=== PATIENT | female | born 1945 | race Two or more races ===

== ENCOUNTER 2017-10-18 22:47 | Inpatient (IN) | payer OTHER ==
[~2017-10-18] VITALS: Ht 162.6 cm; Wt 94.8 kg
[2017-10-18] MEDS ORDERED: MAG HYDROX/AL HYDROX/SIMETH 30 ML UDC PO PRN (23:00)
[2017-10-18] MEDS ORDERED: MAGNESIUM HYDROXIDE 30 ML UDC PO PRN (23:00)
[2017-10-18] MEDS ORDERED: Z GUARD REMEDY 2 OZ OINT TP PRN (23:00)
[2017-10-18] MEDS ORDERED: ACETAMINOPHEN 325 MG TABLET PO PRN (23:00)
[2017-10-18] MEDS ORDERED: ONDANSETRON HCL/PF 4 MG/2 ML VIAL IVP PRN (23:00)
[2017-10-18] MEDS ORDERED: HYDROCODONE/APAP 5/325MG 1 EACH TABLET PO PRN (23:00)
[2017-10-18 23:30] VITALS: BP_SYST 122; BP_SYST 159; BP_DIAS 57; BP_DIAS 88
--- NOTE | 2017-10-18 23:30 | NUR ---
WEB MANAGER NOTES PATIENT TRANSFERRED FROM [place], BROUGHT INTO THE UNIT VIA [facility], ACCOMPANIED BY 2 PERSONNEL OF [facility]SP[facility]. SAFELY AMBULATED WITH CANE FROM BED TO [facility]. PATIENT NOTED TO BE ALERT AND ORIENTED X 3, ICELANDIC SPEAKING, NOTED WITH NO SOB, BREATHING EVEN AND UNLABORED, IN NO ACUTE DISTRESS. PT VERBALIZED PAIN LEVEL OF 5/10, ASKED IF SHE NEEDS PAIN MEDICATION BUT PER PATIENT SHE IS OKAY. PT WITH EXISTING IV PERIPHERAL LINE ON LAC G20, INTACT AND PATENT. WITH ASSISTANCE OF A MUSHROOM GROWTH MEDIA MIXER, ORIENTED PT TO UNIT, ROOM, CALL LIGHT AND USE OF CALL LIGHT. PATIENT VERBALIZED UNDERSTANDING, IS AWARE OF SAFETY NEEDS, PLACED BED IN LOW POSITION AND LOCKED IN PLACE. CALL LIGHT WITHIN EASY REACH. ALL PATIENT'S NEEDS ATTENDED TO. BELONGINGS CHECKED BUT PATIENT VERBALIZED THAT SHE DOESN'T WANT HER PURSE TO BE CHECKED AND OPENED. EXPLAINED RISKS AND BENEFITS TO PATIENT BUT PATIENT INSISTED THAT "THESE ARE NOT IMPORTANT." RESPECTED PATIENT'S REQUEST. WILL CONTINUE TO MONITOR PT.
[2017-10-18] MEDS ORDERED: ATOR10TA PO (23:49)
[2017-10-18] MEDS ORDERED: NIFE60TA69 PO (23:49)
[2017-10-18] MEDS ORDERED: HYDR25TA4 PO (23:49)
[2017-10-18] MEDS ORDERED: LEVO25TA7 PO (23:49)
[2017-10-18] MEDS ORDERED: LOSA100T15 PO (23:49)
[2017-10-18] MEDS ORDERED: CLON0.1T PO (23:49)
[2017-10-18] MEDS ORDERED: FLUT1DIS27 IH (23:51)
[2017-10-19] VITALS (10 sets, daily range): BP systolic 97–133; BP diastolic 51–82
--- NOTE | 2017-10-19 02:24 | NUR ---
RN NOTES PATIENT'S TROPONIN LEVEL NOTED TO BE = 0.148, RELAYED RESULT TO BEN NICE WITH NO NEW ORDERS. PATIENT COMFORTABLY SLEEPING IN BED, BREATHING EVEN AND UNLABORED, NO SOB AND IN NO ACUTE DISTRESS. WILL CONTINUE TO MONITOR.
[2017-10-19] MEDS ORDERED: MORPHINE SULFATE INJ 2 MG/ML DISP.SYRIN IV PRN (02:30)
[2017-10-19] MEDS ORDERED: IV NS 0.9% 500 ML IV PRN (02:30)
[2017-10-19] MEDS ORDERED: PANTOPRAZOLE 40 MG VIAL IV SCH (03:30)
--- NOTE | 2017-10-19 03:30 | NUR ---
RN NOTE PATIENT SEEN AND EXAMINED BY BEN NICE.
[2017-10-19] MEDS: IV NS 0.9% 1,000 ML IV SCH (03:39)
[2017-10-19 06:31] LABS: APPEARANCE,URINE CLEAR (CLEAR); BILIRUBIN,URINE NEGATIVE (NEGATIVE); BLOOD, URINE NEGATIVE Ery/uL (NEGATIVE); COLOR,URINE YELLOW (YELLOW); KETONES,URINE NEGATIVE (NEGATIVE); LEUKOCYTE ESTERASE ,URINE NEGATIVE (NEGATIVE); NITRITE, URINE NEGATIVE (NEGATIVE); PROTEIN,URINE 3+ mg/dl (NEGATIVE); UGLUCOSE NEGATIVE (NEGATIVE); UROBILINOGEN,URINE 0.2 EU/dL (0.2)
[2017-10-19 07:11] LABS: BACTERIA,URINE Few /HPF (None Seen); RBC,URINE 0-2 /HPF (0-2); SQUAMOUS EPITHELIAL CELL,UR Few /HPF (None Seen)
--- NOTE | 2017-10-19 07:20 | NUR ---
RN CLOSING NOTES PATIENT IN BED, AWAKE, ALERT AND ORIENTED X 4, NO SOB, BREATHING EVEN AND UNLABORED, IN NO ACUTE DISTRESS. NOTED PT'S IV LINE ON LAC TO BE DISLODGED, INSERTED A NEW LINE ON THE RIGHT HAND G22, WITH GOOD BLOOD RETURN, INTACT AND PATENT. ALL PATIENT'S NEEDS ATTENDED TO THROUGHOUT THE SHIFT. DENIES CHEST PAIN AT THIS TIME. CALL LIGHT PLACED WITHIN EASY REACH. ENDORSED TO AM SHIFT NURSE FOR CONTINUITY OF CARE.
[2017-10-19 07:22] LABS: BASOPHILS % (AUTO) 0.5 % (0.0-2.0); EOSINOPHILS % (AUTO) 1.9 % (0.0-6.0); HEMATOCRIT 27 % (33-45); HEMOGLOBIN 9.1 g/dL (11.5-14.8); LYMPHOCYTES # (AUTO) 1.7 /CMM (0.8-4.8); LYMPHOCYTES % (AUTO) 26.5 % (20.0-44.0); MEAN CORPUSCULAR HGB CONC 34 g/dl (31.0-36.0); MEAN CORPUSCULAR VOLUME 87 fL (82-100); MONOCYTES # (AUTO) 0.7 /CMM (0.1-1.30); MONOCYTES % (AUTO) 10.8 % (2.0-12.0); NEUTROPHILS # (AUTO) 3.8 /CMM (1.8-8.9); NEUTROPHILS % (AUTO) 60.3 % (43.0-81.0); PLATELET COUNT (AUTO) 275 /CMM (150-450); RDW COEFFICIENT OF VARIATION 15.2 (11.5-15.0); RED BLOOD CELL COUNT(AUTO) 3.08 MIL/uL (4.0-5.2); WHITE BLOOD COUNT (AUTO) 6.3 K/uL (4.3-11.0)
[2017-10-19 07:39] LABS: B-TYPE NATRIURETIC PEPTIDE 2525 PG/ML (0-125); CALCIUM, SERUM 8.1 mg/dL (8.5-10.1); CARBON DIOXIDE 22 mmol/L (21-32); CHLORIDE 107 mmol/L (98-107); CREATININE 1.7 mg/dL (0.6-1.3); GLUCOSE 99 mg/dL (74-106); MAGNESIUM 2.1 mg/dL (1.8-2.4); PHOSPHORUS 4.2 mg/dL (2.5-4.9); POTASSIUM 4.1 mmol/L (3.5-5.1); SODIUM SERUM 140 mmol/L (136-145); UREA NITROGEN, BLOOD 27 mg/dL (7-18)
[2017-10-19 07:42] LABS: HDL CHOLESTEROL 47 mg/dL (40-60); LDL 93 mg/dL (0-99); TRIGLYCERIDES 77 mg/dL (30-150)
[2017-10-19 07:51] LABS: CHOLESTEROL 153 mg/dL (<200)
--- NOTE | 2017-10-19 07:57 | NUR ---
SOFTWARE QUALITY ANALYST: INITIAL NOTE RECEIVED PT A/OX 4. ON TELE MONITORING SR AT 76 BPM. NO DISTRESS NOTED. NO SOB NOTED. NO PAIN NOTED. BRP. AMBULATORY WITH CANE. NPO EXCEPT MEDS. R HAND 322 RUNNING NS AT 50CC/HR. SITE CLEAR AND PATENT. NO REDNESS OR BLEEDING NOTED. RESTING COMFORTABLY IN BED. CALL LIGHT WITHIN REACH.
[2017-10-19] MEDS: CARVEDILOL 12.5 MG TABLET PO SCH ×2 (08:49→21:53)
[2017-10-19] MEDS: LEVOTHYROXINE SODIUM 25 MCG TABLET PO SCH (08:49)
[2017-10-19] MEDS: ASPIRIN 325 MG TABLET PO SCH (08:49)
[2017-10-19] MEDS: CLONIDINE HCL 0.1 MG TABLET PO SCH ×2 (08:50→16:11)
[2017-10-19] MEDS: ENOXAPARIN SODIUM 100 MG/ML DISP.SYRIN SQ SCH (08:51)
[2017-10-19] MEDS: FLUTICASONE/VILANTEROL 1 EACH BLST.W.DEV IH SCH (08:56)
[2017-10-19] MEDS: NIFEdipine XL 60 MG TAB PO SCH (08:56)
[2017-10-19] MEDS ORDERED: ENOXAPARIN SODIUM 40 MG/0.4 ML DISP.SYRIN SQ SCH (09:00)
[2017-10-19] MEDS ORDERED: FLUTICASONE/SALMETEROL DISKUS IH SCH (09:00)
[2017-10-19] MEDS ORDERED: NIFEdipine XL 60 MG TAB PO SCH (09:00)
[2017-10-19] MEDS ORDERED: LOSARTAN POTASSIUM 50 MG TABLET PO SCH (09:00)
[2017-10-19] MEDS ORDERED: HYDROCHLOROTHIAZIDE 25 MG TABLET PO SCH (09:00)
--- NOTE | 2017-10-19 09:57 | NUR ---
DUE TO NEW ONSET OF UNCONTROLLED A.FIB. MD MCKEON ORDEERS TO TRASNFER TO ANGELITA AND PLACE ORDERS TO START AMNIODARONE BOLUS. ORDERS CARRIED OUT
[2017-10-19] MEDS ORDERED: MORPHINE SULFATE INJ 4 MG/ML DISP.SYRIN IV PRN (10:00)
--- NOTE | 2017-10-19 10:19 | NUR ---
TRASNFERED TO ROOM 117-1. REPORT GIVEN TO TONEY HUMMEL
--- NOTE | 2017-10-19 10:22 | NUR ---
TD RN NOTES RECEIVED PATIENT A/OX4 BRUNEIAN SPEAKING ONLY. PATIENT STATES CHEST PAIN IS BETTER 5/10. AT THIS TIME NO SOB, DIFFICULTY BREATHING. TELE AFIB 130-140'S . PATIENT TRANSFERED HERE PER DR MCKEON ORDER. PHARMACY AWARE OF AMIO ORDER. NEEDS IN REACH, SAFETY PRECAUTIONS IN PLACE. WILL MONITOR
[2017-10-19] MEDS ORDERED: AMIODARONE 900 MG in IV D5W 482 ML IV PRN (10:30)
[2017-10-19] MEDS ORDERED: AMIODARONE 150 MG in IV D5W 100 ML IV ONE (10:30)
--- NOTE | 2017-10-19 10:34 | NUR ---
TD RN NOTES PATIENT PLACED ON 2LNC FOR COMFORT.
--- NOTE | 2017-10-19 11:21 | NUR ---
TD RN NOTES VS STABLE. PATIENT C/O CHEST PAIN 5-6/10 AT REST. PER MD ORDER GIVING 1MG MORPHINE IVP WILL REASSESS.
--- NOTE | 2017-10-19 11:51 | NUR ---
FRANCO RN NOTES MESSAGE LEFT FOR LIP CUTTER TEX IF WE ARE KEEPING PATIENT NPO
--- NOTE | 2017-10-19 14:47 | NUR ---
TD RN NOTES MESSAGE TO DR MCKEON. PATIENT NSR FOR 2.5 HRS.
--- NOTE | 2017-10-19 15:46 | NUR ---
TD RN NOTES PER MD MCKEON CONTINUE AMIODARONE DRIP. PATIENT IS GETTING CTA TOMORROW. NPO MN
--- NOTE | 2017-10-19 16:25 | NUR ---
TD RN NOTES PER DR MCKEON PATIENT CAN HAVE CTA ANY TIME AVAILABLE. CALLED XRAY AND THEY HAVE PATIENT SET UP FOR 10/20/17 AM. WILL BE NPO MN.
--- NOTE | 2017-10-19 17:15 | NUR ---
TD RN NOTES TITRATED AMIO DRIP PER PROTOCOL. PATIENT STABLE. NO COMPLICATIONS NOTED. FAMILY AT BEDSIDE
--- NOTE | 2017-10-19 18:44 | NUR ---
TD RN CLOSING PATIENT CURRENTLY NSR. PATIENT DENIES CHEST PAIN AT THIS TIME. ALL DUE MEDS GIVEN AND ALL NEEDS ASSESSED AND MET. SAFETY PRECAUTIONS IN PLACE. IV SITES CLEAN DRY PATENT AND INTACT. ANIO DRIP RUNNING ORDERED PER PROTOCOL. PATIENT APPEARS STABLE AT THIS TIME. WILL ENDORSE CARE TO RN FOR MARY
--- NOTE | 2017-10-19 20:10 | NUR ---
ANGELITA RN NOTES PATIENT IS IN BED. ALERT, ORIENTED X4.NO LABORED BREATHING, VITALS ARE WNL, IN ROOM AIR , SAFETY MEASURES ARE IMPLEMENTED ,CALL LIGHT IS IN EASY REACH . SHE IS ON AMIODARONE DRIP PER PROTOCOL, IVF ORDERED. IV LINES ARE INTACT, PATENT.
[2017-10-19] MEDS: NITROGLYCERIN 0.4 MG/TAB BOTTLE SL PRN (21:54)
[2017-10-19] MEDS: ATORVASTATIN 10 MG TABLET PO SCH (21:54)
--- NOTE | 2017-10-19 22:00 | NUR ---
ANGELITA RN NOTES PATIENT COMPLAINED OF CHEST PAIN 5/10 NON RADIATING WORSENING WITH BREATHING. PT IS PLACED ON NC 2L AND NITRO PRN IS GIVEN. PT IS REASSESSED . PT VERBALIZES RELIEF FROM PAIN.
[2017-10-20] VITALS (7 sets, daily range): BP systolic 105–139; BP diastolic 51–83
[2017-10-20] MEDS: IV NS 0.9% 1,000 ML IV SCH (01:36)
--- NOTE | 2017-10-20 06:51 | NUR ---
ANGELITA RN NOTES PATIENT IS IN BED. ALERT, ORIENTED X4.NO LABORED BREATHING, VITALS ARE WNL, IN 2L OXYGEN , SAFETY MEASURES ARE IMPLEMENTED ,CALL LIGHT IS IN EASY REACH . SHE IS ON AMIODARONE DRIP PER PROTOCOL, IVF ORDERED. IV LINES ARE INTACT, PATENT.PATIENT DENIES ANY CHEST PAIN AT THIS TIME . ALL DUE MEDS ARE GIVEN AND NEEDS ARE ADDRESSED.WILL ENDORSE CARE TO UPCOMING SHIFT NURSE.
[2017-10-20 07:09] LABS: BASOPHILS % (AUTO) 0.6 % (0.0-2.0); EOSINOPHILS % (AUTO) 3.5 % (0.0-6.0); HEMATOCRIT 27 % (33-45); HEMOGLOBIN 9.2 g/dL (11.5-14.8); LYMPHOCYTES # (AUTO) 1.6 /CMM (0.8-4.8); LYMPHOCYTES % (AUTO) 25.9 % (20.0-44.0); MEAN CORPUSCULAR HGB CONC 34 g/dl (31.0-36.0); MEAN CORPUSCULAR VOLUME 86 fL (82-100); MONOCYTES # (AUTO) 0.6 /CMM (0.1-1.30); MONOCYTES % (AUTO) 10.1 % (2.0-12.0); NEUTROPHILS # (AUTO) 3.7 /CMM (1.8-8.9); NEUTROPHILS % (AUTO) 59.9 % (43.0-81.0); PLATELET COUNT (AUTO) 293 /CMM (150-450); RDW COEFFICIENT OF VARIATION 14.8 (11.5-15.0); RED BLOOD CELL COUNT(AUTO) 3.16 MIL/uL (4.0-5.2); WHITE BLOOD COUNT (AUTO) 6.2 K/uL (4.3-11.0)
[2017-10-20 07:26] LABS: ALANINE AMINOTRANSFERASE 20 U/L (12-78); ALBUMIN 2.4 g/dL (3.4-5.0); ALKALINE PHOSPHATASE 65 U/L (46-116); ASPARTATE AMINOTRANSFERASE 23 U/L (15-37); BILIRUBIN,TOTAL 0.2 mg/dL (0.2-1.0); CALCIUM, SERUM 7.9 mg/dL (8.5-10.1); CARBON DIOXIDE 24 mmol/L (21-32); CHLORIDE 108 mmol/L (98-107); GLUCOSE 103 mg/dL (74-106); MAGNESIUM 2.1 mg/dL (1.8-2.4); PHOSPHORUS 4.5 mg/dL (2.5-4.9); POTASSIUM 4.6 mmol/L (3.5-5.1); SODIUM SERUM 139 mmol/L (136-145); TOTAL PROTEIN, SERUM 6.5 g/dL (6.4-8.2); UREA NITROGEN, BLOOD 29 mg/dL (7-18)
[2017-10-20 07:39] LABS: TROPONIN I 0.198 ng/mL (0.00-0.056)
--- NOTE | 2017-10-20 08:00 | NUR ---
ANGELITA RN NOTES PATIENT IS IN BED. ALERT, ORIENTED X4.SPEAKS UKRAINIAN, NO LABORED BREATHING, VITALS ARE WNL, IN 2L OXYGEN , SAFETY MEASURES ARE IMPLEMENTED ,CALL LIGHT IS IN EASY REACH . SHE IS ON AMIODARONE DRIP PER PROTOCOL, IVF ORDERED. IV ON RT HL FA WITH SWOLLEN NOTED, NEW ONE 0N LT HAND TIM 20 INSERTED WITH GOOD BLOOD RETURN PATIENT DENIES ANY CHEST PAIN AT THIS TIME . AND NEEDS ARE ADDRESSED. ON TELE MONITOR SB 58 ON NPO AT THIS TIME WILL HAVE CT ANGIO GRAM TODAY, BED IN LOWEST AND LOCKED POSITION
--- NOTE | 2017-10-20 08:39 | NUR ---
ANGELITA RN NOTE CALLED RADIOLOGY ABOUT CT ANGIO SPOKE WITH TECH .STATED THAT WILL CALL WHEN ENDOSCOPY TECHNICAN PATENT STILL ON NPO
[2017-10-20] MEDS: ENOXAPARIN SODIUM 100 MG/ML DISP.SYRIN SQ SCH (10:06)
[2017-10-20] MEDS: NIFEdipine XL 60 MG TAB PO SCH (10:07)
[2017-10-20] MEDS: LEVOTHYROXINE SODIUM 25 MCG TABLET PO SCH (10:09)
[2017-10-20] MEDS: ASPIRIN 325 MG TABLET PO SCH (10:09)
[2017-10-20] MEDS: FLUTICASONE/VILANTEROL 1 EACH BLST.W.DEV IH SCH (10:15)
[2017-10-20] MEDS: CARVEDILOL 12.5 MG TABLET PO SCH ×2 (10:16→21:18)
[2017-10-20] MEDS: CLONIDINE HCL 0.1 MG TABLET PO SCH ×2 (10:16→17:03)
--- NOTE | 2017-10-20 11:41 | NUR ---
ANGELITA DARNELL SPOKE WITH DR MCKEON NOTIFY THAT AMIODARONE DRIP COMPLETED STATED THAT WILL CHECK PATIENT SOON AND WILL PLACE ON PO AMIODARONE
--- NOTE | 2017-10-20 12:01 | NUR ---
ANGELITA RN NOTE REPORTED TO DR MCKEON THAT TROPONIN 0.198 STATED CONT LAURI AND IVF
[2017-10-20] MEDS: AMIODARONE HCL 200 MG TABLET PO SCH (12:29)
--- NOTE | 2017-10-20 14:21 | NUR ---
ANGELITA RN NOTE AMBULATE WELL WITH PT USING A WALKER
--- NOTE | 2017-10-20 15:59 | NUR ---
shelia rn note jason Alvarado inserted mid line on lt upper arm [id number], all needs attended
--- NOTE | 2017-10-20 18:52 | NUR ---
ANGELITA RNNNTE UNABLE TO FLUSH MOD LINE ON LT UPPER ARM , TRIED TO DO REPOSITION ON ARM , STILL UNABLE TO FLUSH, CALLED ZEINAB ALVARADO DNP LEFT A MESSAGE AND EDWINA NURSING LEAK DETECTION ENGINEER AWARE
--- NOTE | 2017-10-20 18:56 | NUR ---
DO RN NOTE SPOKE WITH EDWINA RN CENTER MEDICAL SPECIALIST STATED THAT SPOKE WITH ZEINAB ALVARADO DNP AND HE WILL INSERT NEW MID LINE TOMORROW
--- NOTE | 2017-10-20 19:07 | NUR ---
ANGELITA RN NOTE RECEIVED PATIENT IN BED, AWAKE AND ALERT. PATIENT DENIES ANY PAIN AND DISCOMFORT, NOT IN ANY DISTRESS. PATIENT ON 2LPM O2 VIA NC, RESPIRATION IS EVEN AND UNLABORED. NSR ON TELE WITH OCCASIONAL PVCs, HR IN THE 60s. PATIENT'S CTCA HELD FOR TODAY D/T INCREASED CREATININE, IVF CONTINUED ORDERED. WITH L HAND AND L WRIST/THUMB G20, FLUSHING WELL, INTACT AND PATENT, NO SIGNS OF INFILTRATION. JOY MIDLINE IN PLACE, UNABLE TO FLUSH CHECKED. PATIENT UPDATED WITH PLAN OF CARE. REASSURED NEEDED. PATIENT'S NEEDS ANTICIPATED AND MET, CALL LIGHT IN REACH. WILL MONITOR CLOSELY.
[2017-10-20] MEDS: ATORVASTATIN 10 MG TABLET PO SCH (21:18)
[2017-10-20] MEDS: IV NS 0.9% 1,000 ML IV PRN (21:18)
[2017-10-20] MEDS: NITROGLYCERIN 0.4 MG/TAB BOTTLE SL PRN (21:19)
--- NOTE | 2017-10-20 21:19 | NUR ---
ANGELITA RN NOTE PATIENT COMPLAINING OF MILD CHEST PAIN, 5/10, AGGRAVATED WITH ACTIVITY AND BREATHING. PATIENT'S VS 134/82, 74, 98% ON 2LPM OF O2 VIA NC. PATIENT REQUESTING FOR NITRO SL, GIVEN ORDERED. NIGHT TIME MEDS GIVEN. WILL MONITOR FOR EFFECTIVENESS.
[2017-10-21] VITALS: BP 137/75
[2017-10-21 04:00] VITALS: BP 129/70
--- NOTE | 2017-10-21 06:53 | NUR ---
ANGELITA RN NOTE PATIENT ABLE TO SLEEP COMFORTABLY THROUGH THE SHIFT. PATIENT MEDICATED WITH NITRO SL X1 AT 2119, WITH GOOD EFFECT. NO FURTHER COMPLAINT OF CHEST PAIN NOR DISCOMFORT. 2LPM OF O2 VIA NC IN PLACE. IVF INFUSING WELL ORDERED. NEEDS ANTICIPATED AND MET. ASSISTED WITH ADLS NEEDED. SAFETY AND COMFORT ENSURED. CALL LIGHT IN REACH. KEPT NPO FOR POSSIBLE CTCA PROCEDURE THIS AM. WILL ENDORSE ACCORDINGLY.
[2017-10-21 08:00] VITALS: BP 153/61
--- NOTE | 2017-10-21 08:00 | NUR ---
TD/RN AM SHIFT INITIAL NOTES RECEIVED PT AWAKE SITTING IN BED, A/O X 4, DENIES ANY SYMPTOMS AT THIS TIME. ON 2L O2 VIA N/C SATURATING @ 98%, LUNG SOUND CLEAR. ON TELE WITH CONTROLLED A-FIB, HR 59. WITH ON GOING IV INFUSION OF NS @ 50CC/HR, IV SITE PATENT WITH NO S/S OF INFECTION. PT IS COMFORTABLE, ON NPO STATUS AT THIS TIME. CL WITHIN REACHED AND SAFETY MAINTAINED. ON GOING MONITORING.
[2017-10-21 08:07] LABS: BASOPHILS % (AUTO) 0.7 % (0.0-2.0); HEMATOCRIT 27 % (33-45); HEMOGLOBIN 9.1 g/dL (11.5-14.8); LYMPHOCYTES # (AUTO) 1.7 /CMM (0.8-4.8); LYMPHOCYTES % (AUTO) 28.8 % (20.0-44.0); MEAN CORPUSCULAR HGB CONC 34 g/dl (31.0-36.0); MEAN CORPUSCULAR VOLUME 87 fL (82-100); MONOCYTES # (AUTO) 0.5 /CMM (0.1-1.30); MONOCYTES % (AUTO) 9.3 % (2.0-12.0); NEUTROPHILS # (AUTO) 3.3 /CMM (1.8-8.9); NEUTROPHILS % (AUTO) 57.2 % (43.0-81.0); PLATELET COUNT (AUTO) 334 /CMM (150-450); RDW COEFFICIENT OF VARIATION 14.9 (11.5-15.0); RED BLOOD CELL COUNT(AUTO) 3.12 MIL/uL (4.0-5.2); WHITE BLOOD COUNT (AUTO) 5.8 K/uL (4.3-11.0)
[2017-10-21] MEDS: NIFEdipine XL 60 MG TAB PO SCH (08:31)
[2017-10-21] MEDS: CARVEDILOL 12.5 MG TABLET PO SCH ×2 (08:31→21:53)
[2017-10-21] MEDS: ASPIRIN 325 MG TABLET PO SCH (08:31)
[2017-10-21] MEDS: FLUTICASONE/VILANTEROL 1 EACH BLST.W.DEV IH SCH (08:31)
[2017-10-21] MEDS: LEVOTHYROXINE SODIUM 25 MCG TABLET PO SCH (08:31)
[2017-10-21] MEDS: AMIODARONE HCL 200 MG TABLET PO SCH (08:32)
[2017-10-21] MEDS: CLONIDINE HCL 0.1 MG TABLET PO SCH ×2 (08:32→17:53)
[2017-10-21 09:43] LABS: ALANINE AMINOTRANSFERASE 20 U/L (12-78); ALBUMIN 2.4 g/dL (3.4-5.0); ALKALINE PHOSPHATASE 79 U/L (46-116); ASPARTATE AMINOTRANSFERASE 27 U/L (15-37); BILIRUBIN,TOTAL 0.1 mg/dL (0.2-1.0); CALCIUM, SERUM 7.9 mg/dL (8.5-10.1); CARBON DIOXIDE 24 mmol/L (21-32); CHLORIDE 108 mmol/L (98-107); CREATININE 1.9 mg/dL (0.6-1.3); GLUCOSE 99 mg/dL (74-106); PHOSPHORUS 4.2 mg/dL (2.5-4.9); POTASSIUM 4.4 mmol/L (3.5-5.1); SODIUM SERUM 139 mmol/L (136-145); TOTAL PROTEIN, SERUM 6.7 g/dL (6.4-8.2); UREA NITROGEN, BLOOD 28 mg/dL (7-18)
--- NOTE | 2017-10-21 10:30 | NUR ---
MS1/RN PHYSICAL THERAPY PT BEING SEEN BY PHYSICAL THERAPIST. ON GOING MONITORING.
--- NOTE | 2017-10-21 15:47 | NUR ---
MS1/RN ROUNDS PT AWAKE SITTING IN BED, WATCHING TV. NO ACUTE CHANGE OF CONDITION. MONITORING CONTINUED.
[2017-10-21 16:00] VITALS: BP 141/59
--- NOTE | 2017-10-21 19:00 | NUR ---
MS1/RN AM SHIFT END NOTES NO ACUTE CHANGE OF CONDITION NOTED DURING THE SHIFT. ALL NEEDS MET. PT ENDORSED TO PM NURSE TO CONTINUE CARE. ALSO ENDORSED TO PLACE PT ON NPO AFTER MIDNIGHT FOR POSSIBLE CT ANGIO WITH CONTRAST IN AM. CL WITHIN REACHED AND SAFETY MAINTAINED.
[2017-10-21] MEDS: IV NS 0.9% 1,000 ML IV PRN (19:02)
--- NOTE | 2017-10-21 19:52 | NUR ---
RN MS INITIAL NOTES RECEIVED PT AWAKE SITTING IN BED, A/O X 4, DENIES ANY SYMPTOMS AT THIS TIME. ON 2L O2 VIA N/C SATURATING @ 98%, LUNG SOUND CLEAR. ON TELE WITH SR 63. WITH ON GOING IV INFUSION OF NS @ 50CC/HR, IV SITE PATENT WITH NO S/S OF INFECTION. PT IS COMFORTABLE, ON NPO STATUS AFTER MDNIGHT. CL WITHIN REACHED AND SAFETY MAINTAINED. ON GOING MONITORING
[2017-10-21 20:00] VITALS: BP 150/77
[2017-10-21] MEDS: ATORVASTATIN 10 MG TABLET PO SCH (21:51)
[2017-10-22] VITALS: BP 150/77
[2017-10-22 04:00] VITALS: BP 156/57
--- NOTE | 2017-10-22 06:02 | NUR ---
RN MS CLOSING NOTES ENDORSED PT AWAKE SITTING IN BED, A/O X 4, DENIES ANY SYMPTOMS AT THIS TIME. ON 2L O2 VIA N/C SATURATING @ 98%, LUNG SOUND CLEAR. ON TELE WITH SR 63. WITH ON GOING IV INFUSION OF NS @ 50CC/HR, IV SITE PATENT WITH NO S/S OF INFECTION. PT IS COMFORTABLE, ON NPO STATUS AFTER MDNIGHT, FOR CORONARY CTA. CL WITHIN REACHED AND SAFETY MAINTAINED. ON GOING MONITORING
[2017-10-22 07:24] LABS: BASOPHILS % (AUTO) 0.5 % (0.0-2.0); EOSINOPHILS % (AUTO) 2.4 % (0.0-6.0); HEMATOCRIT 28 % (33-45); HEMOGLOBIN 9.5 g/dL (11.5-14.8); LYMPHOCYTES # (AUTO) 1.6 /CMM (0.8-4.8); MEAN CORPUSCULAR HGB CONC 34 g/dl (31.0-36.0); MEAN CORPUSCULAR VOLUME 87 fL (82-100); MONOCYTES # (AUTO) 0.5 /CMM (0.1-1.30); MONOCYTES % (AUTO) 8.4 % (2.0-12.0); NEUTROPHILS # (AUTO) 3.4 /CMM (1.8-8.9); NEUTROPHILS % (AUTO) 60.7 % (43.0-81.0); PLATELET COUNT (AUTO) 322 /CMM (150-450); RED BLOOD CELL COUNT(AUTO) 3.26 MIL/uL (4.0-5.2); WHITE BLOOD COUNT (AUTO) 5.6 K/uL (4.3-11.0)
[2017-10-22 07:42] LABS: ALANINE AMINOTRANSFERASE 33 U/L (12-78); ALBUMIN 2.5 g/dL (3.4-5.0); ALKALINE PHOSPHATASE 79 U/L (46-116); ASPARTATE AMINOTRANSFERASE 48 U/L (15-37); BILIRUBIN,TOTAL 0.2 mg/dL (0.2-1.0); CARBON DIOXIDE 21 mmol/L (21-32); CHLORIDE 108 mmol/L (98-107); CREATININE 1.6 mg/dL (0.6-1.3); GLUCOSE 99 mg/dL (74-106); PHOSPHORUS 3.9 mg/dL (2.5-4.9); POTASSIUM 4.4 mmol/L (3.5-5.1); SODIUM SERUM 139 mmol/L (136-145); TOTAL PROTEIN, SERUM 6.9 g/dL (6.4-8.2); UREA NITROGEN, BLOOD 24 mg/dL (7-18)
[2017-10-22 08:00] VITALS: BP 169/54
--- NOTE | 2017-10-22 08:33 | NUR ---
M/S RN NOTE: CALLED AND SPOKE W/ DR. MCKEON RE: THE PATIENT'S CREATININE LEVEL OF 1.6 TODAY. ACCORDING TO MD, PATIENT CAN HAVE THE CORONARY CTA TEST TODAY. AND MD WAS ALSO INFORMED ABOUT THE PATIENT'S BP. PER MD, IT'S OK GIVE MEDICATIONS, BUT WILL CONTINUE TO BE NPO. PATIENT MADE AWARE.
--- NOTE | 2017-10-22 08:35 | NUR ---
M/S RN NOTE: CALLED AND SPOKE W/ OLIVIA FROM RADIOLOGY DEPT. AND INFORMED HIM ABOUT THE PATIENT'S CLEARANCE FROM DR. MCKEON TO HAVE THE CORONARY CTA TEST TO BE DONE TODAY. ACCORDING TO HIM, HE WILL INFORM THE FOOTWEAR FACTORY WORKER TO INCLUDE THE PATIENT ON HIS PATIENT'S LIST.
[2017-10-22] MEDS: CLONIDINE HCL 0.1 MG TABLET PO SCH ×2 (08:47→17:38)
[2017-10-22] MEDS: LEVOTHYROXINE SODIUM 25 MCG TABLET PO SCH (08:48)
[2017-10-22] MEDS: AMIODARONE HCL 200 MG TABLET PO SCH (08:48)
[2017-10-22] MEDS: ASPIRIN 325 MG TABLET PO SCH (08:48)
[2017-10-22] MEDS: FLUTICASONE/VILANTEROL 1 EACH BLST.W.DEV IH SCH (09:34)
[2017-10-22] MEDS: NIFEdipine XL 60 MG TAB PO SCH (10:07)
[2017-10-22] MEDS: CARVEDILOL 12.5 MG TABLET PO SCH ×2 (10:08→20:56)
--- NOTE | 2017-10-22 10:49 | NUR ---
M/S RN NOTE: RECEIVED PATIENT IN BED, AWAKE, ALERT AND VERBALLY RESPONSIVE. RESPIRATION IS EVEN AND UNLABORED. ON O2 2L/MIN VIA NC SATURATING 98%. DENIED ANY PAIN OR DISCOMFORT. HOB ELEVATED. (L) UA MIDLINE WAS INTACT W/ TRANSPARENT DRESSING AND INFUSING NS@ 50ML/HR. CALL LIGHT WITHIN REACH. NEEDS ANTICIPATED. PER PM SHIFT NURSE, PATIENT WAS KEPT NPO FOR THE POSSIBILITY OF CORONARY CTA TEST TODAY DEPENDING ON THE BLOOD TEST IN AM. AWAITING FOR THE RESULTS. PATIENT AWARE. Addendum: 10/22/17 at 1052 by MORGAN ODEN RN OPENING NOTE 10/22/17 @2666
[2017-10-22] MEDS ORDERED: IOHEXOL-350 100 ML VIAL IV ONE (11:55)
[2017-10-22] MEDS ORDERED: IV NS 0.9% 250 ML IV ONE (11:56)
--- NOTE | 2017-10-22 14:48 | NUR ---
M/S RN NOTE: PATIENT WAS RETURNED TO THE UNIT AFTER HER CORONARY CTA. CALLED AND PAGED MER[facility] PRASAD NP TO INFORM HIM THAT THE TEST WAS DONE ALREADY AND IF HE HAS ANY ORDER TO CHANGE THE PATIENT'S DIET. AWAITING FOR CALL BACK. PATIENT MADE AWARE.
--- NOTE | 2017-10-22 15:07 | NUR ---
M/S RN NOTE: RECEIVED A CALLBACK FROM [facility] PRASAD NP AND PER GAS METER READER GIVE NS@75CC/HR IV AND HOLD THE DIET FOR NOW AND WAIT TILL THE CTA RESULT IS UP AND CLEARED BY DR. MCKEON. PATIENT MADE AWARE.
[2017-10-22] MEDS: IV NS 0.9% 1,000 ML IV PRN (15:24)
[2017-10-22] MEDS ORDERED: IV NS 0.9% 1,000 ML BAG IV PRN (15:30)
[2017-10-22 16:00] VITALS: BP 149/68
--- NOTE | 2017-10-22 17:00 | NUR ---
M/S RN NOTE: CALLED AND SPOKE W/ MER[facility] PRASAD NP RE: THE CTA RESULT. PER MERCY, INFORM DR. MCKEON ABOUT THE RESULT AND GET AN ORDER FROM .
--- NOTE | 2017-10-22 17:16 | NUR ---
M/S RN NOTE: CALLED AND SPOKE W/ DR. MCKEON RE: THE CTA RESULT AND PER MD, PATIENT IS OK TO RESUME HER CARDIAC DIET FOR DINNER. ORDER, NOTED AND CARRIED OUT. PATIENT MADE AWARE.
--- NOTE | 2017-10-22 19:13 | NUR ---
M/S RN NOTE: PATIENT IS IN BED, AWAKE, ALERT AND VERBALLY RESPONSIVE. RESPIRATION IS EVEN AND UNLABORED. DENIED ANY PAIN. PATIENT ATE 100% ON HER DINNER MEAL. (L) UA PICC LINE NOTED PATENT AND INTACT INFUSING NS@75CC/HR. CALL LIGHT WITHIN REACH. REPORT GIVEN TO PM SHIFT NURSE FOR CONTINUITY OF CARE.
--- NOTE | 2017-10-22 20:22 | NUR ---
M/S RN INITIAL NOTE: RECEIVED PATIENT IN BED, AWAKE, ALERT AND VERBALLY RESPONSIVE. RESPIRATION IS EVEN AND UNLABORED. ON O2 2L/MIN VIA NC SATURATING 98%. DENIED ANY PAIN OR DISCOMFORT. HOB ELEVATED. S/P (L) UA PICC LINE INTACT, NO S/S OF INFX, AFEBRILE, W/ TRANSPARENT DRESSING AND INFUSING NS@ 75ML/HR. CALL LIGHT WITHIN REACH. NEEDS ANTICIPATED. PER PM SHIFT NURSE, PATIENT RESUMED PO DIET, WELL FREDI', S/P CORONARY CTA TEST TODAY, (-) PT DENIES ANY DISCOMFORT AT THIS TIME. WILL CONT TO MONITOR..
[2017-10-22] MEDS: ATORVASTATIN 10 MG TABLET PO SCH (21:00)
[2017-10-23] VITALS: BP 140/62
[2017-10-23] MEDS: IV NS 0.9% 1,000 ML IV PRN (04:21)
--- NOTE | 2017-10-23 07:35 | NUR ---
M/S RN NOTE: RECEIVED PATIENT IN BED, AWAKE, ALERT AND VERBALLY RESPONSIVE. ON O2 @2L/MIN VIA NC AND SATURATING 100%. DENIED ANY PAIN OR DISCOMFORT. HOB ELEVATED. PATIENT HAS BATHROOM PRIVILEGE AND NOTED W/ STEADY GAIT. (L) UA PICC LINE NOTED PATENT AND INTACT INFUSING NS@75CC/HR. BED LOCKED AT ALL TIMES. CALL LIGHT WITHIN REACH.
[2017-10-23 08:00] VITALS: BP 150/73
[2017-10-23] MEDS: FLUTICASONE/VILANTEROL 1 EACH BLST.W.DEV IH SCH (08:37)
[2017-10-23] MEDS: ASPIRIN 325 MG TABLET PO SCH (08:37)
[2017-10-23] MEDS: AMIODARONE HCL 200 MG TABLET PO SCH (08:38)
[2017-10-23] MEDS: LEVOTHYROXINE SODIUM 25 MCG TABLET PO SCH (08:39)
[2017-10-23] MEDS: NIFEdipine XL 60 MG TAB PO SCH (08:39)
[2017-10-23] MEDS: CLONIDINE HCL 0.1 MG TABLET PO SCH ×2 (08:39→17:52)
[2017-10-23] MEDS: CARVEDILOL 12.5 MG TABLET PO SCH ×2 (08:39→21:20)
--- NOTE | 2017-10-23 09:50 | NUR ---
M/S RN NOTE: CALLED AND SPOKE W/ JOSHUA RN FROM M/S 2ND FLOOR AND GAVE REPORT REGARDING THE PATIENT'S TRANSFER TO ROOM 203. PATIENT WILL BE TRANSFER TO THE UNIT VIA WHEELCHAIR WITH ALL HER BELONGINGS. ALL AM MEDS WERE GIVEN TO THE PATIENT PRIOR TO TRANSFER.
--- NOTE | 2017-10-23 10:15 | NUR ---
M/S RN NOTE: PATIENT WAS TRANSFERRED TO ROOM 203 AND CONTINUITY OF CARE WILL BE PROVIDED BY SHAHEED LEWIS. PATIENT WAS BROUGHT TO ROOM 203 VIA WHEELCHAIR W/ ALL HER BELONGINGS. NO SHORTNESS OF BREATH NOTED UPON TRANSFER. REMAINED FREE OF PAIN.
--- NOTE | 2017-10-23 10:20 | NUR ---
MS/RN PATIENT IS RECEIVED PATIENT IS RECEIVED IN W/CHAIR. PATIENT ALERT AND ORIENTED X4. YI SPEAKING. DENIES SOB AT THIS TIME. RESPIRATION REGULAR AND UNLABORED. DENIES PAIN AT THIS TIME. NOTED WITH JOY PICC LINE G 18 PATENT AND SALINE LOCKED. PATIENT IS GIVEN ORIENTATION TO THE ROOM AND THE UNIT. ENCOURAGED OT PRESS THE CALL LIGHT FOR ASSISTANCE. BED LOW AND LOCKED. SIDE RAILS UP X2. CALL LIGHT WITHIN REACH. WILL CONTINUE TO MONITOR.
[2017-10-23 10:22] VITALS: BP 128/75
[2017-10-23 13:22] LABS: BASOPHILS % (AUTO) 0.4 % (0.0-2.0); EOSINOPHILS % (AUTO) 1.8 % (0.0-6.0); HEMATOCRIT 27 % (33-45); HEMOGLOBIN 9.1 g/dL (11.5-14.8); LYMPHOCYTES # (AUTO) 1.2 /CMM (0.8-4.8); LYMPHOCYTES % (AUTO) 21.9 % (20.0-44.0); MEAN CORPUSCULAR HGB CONC 33 g/dl (31.0-36.0); MEAN CORPUSCULAR VOLUME 86 fL (82-100); MONOCYTES # (AUTO) 0.5 /CMM (0.1-1.30); NEUTROPHILS # (AUTO) 3.6 /CMM (1.8-8.9); NEUTROPHILS % (AUTO) 66.9 % (43.0-81.0); PLATELET COUNT (AUTO) 326 /CMM (150-450); RDW COEFFICIENT OF VARIATION 14.5 (11.5-15.0); RED BLOOD CELL COUNT(AUTO) 3.19 MIL/uL (4.0-5.2); WHITE BLOOD COUNT (AUTO) 5.4 K/uL (4.3-11.0)
[2017-10-23 13:33] LABS: CARBON DIOXIDE 26 mmol/L (21-32); CHLORIDE 107 mmol/L (98-107); CREATININE 1.5 mg/dL (0.6-1.3); GLUCOSE 78 mg/dL (74-106); POTASSIUM 4.6 mmol/L (3.5-5.1); SODIUM SERUM 141 mmol/L (136-145); UREA NITROGEN, BLOOD 22 mg/dL (7-18)
[2017-10-23 13:39] LABS: ALANINE AMINOTRANSFERASE 48 U/L (12-78); ALBUMIN 2.5 g/dL (3.4-5.0); ALKALINE PHOSPHATASE 82 U/L (46-116); ASPARTATE AMINOTRANSFERASE 50 U/L (15-37); BILIRUBIN,TOTAL 0.2 mg/dL (0.2-1.0); MAGNESIUM 2.5 mg/dL (1.8-2.4); PHOSPHORUS 4.1 mg/dL (2.5-4.9); TOTAL PROTEIN, SERUM 6.6 g/dL (6.4-8.2)
[2017-10-23 14:27] VITALS: BP 122/63
[2017-10-23 16:00] VITALS: BP 135/73
--- NOTE | 2017-10-23 18:29 | NUR ---
MS/RN CLOSING NOTE PATIENT IN BED AWAKE. ALERT AND ORIENTED X4. DENIES SOB. RESPIRATION REGULAR AND UNLABORED. DENIES PAIN. JOY PICC LINE G 18 PATENT. PATIENT CONTINENT OF BOWEL AND BLADDER. ABDOMEN SOFT AND NON-DISTENDED. PATIENT ABLE TO AMBULATE WITH A CANE AND SUPERVISION. GOOD AND GENTLE SKIN CARE RENDERED. KEPT CLEAN, DRY AND COMFORTABLE. BED LOW AND LOCKED. SIDE RAILS UP X3. CALL LIGHT WITHIN REACH. WILL ENDORSE TO CLERK TO JUSTICE.
[2017-10-23] MEDS: ATORVASTATIN 10 MG TABLET PO SCH (21:20)
--- NOTE | 2017-10-23 21:25 | NUR ---
MS RN INITIAL NOTE PT IS IN BED AWAKE AND ALERT, ABLE TO MAKE NEEDS KNOWN. BELARUSIAN SPEAKING. LEFT SIDED FACIAL WEAKNESS NOTED, PT STATED THAT IS RESIDUAL FROM NERVE DAMAGE THAT HAPPENED MANY YEARS AGO. DENIES ANY CHEST PAIN AT THIS TIME. NO SIGNS OF SOB OR DISTRESS, BREATHING EVENLY AND UNLABORED ON 2L NC. BED IS IN LOW AND LOCKED POSITION, CALL LIGHT WITHIN REACH. WILL CONTINUE TO MONITOR PT
--- NOTE | 2017-10-24 06:50 | NUR ---
MS RN CLOSING NOTE PT IS IN BED RESTING, A/O X4 ABLE TO MAKE NEEDS KNOWN. NO SIGNS OF SOB OR DISTRESS, BREATHING EVENLY AND UNLABORED ON 2L NC. DENIES PAIN AT THIS TIME.NO ACUTE CHANGES THROUGHOUT THE SHIFT. ALL NEEDS WERE ANTICIPATED AND MET. BED IS IN LOW AND LOCKED POSITION, CALL LIGHT WITHIN REACH. WILL ENDORSE TO DAYSHIFT
--- NOTE | 2017-10-24 07:46 | NUR ---
MS/RN Patient received Patient received from night filler. A/OX4, South African speaking only. Denies pain or discomfort, vital signs within normal range. Call light within reach, side rails X2 in upright position. Will continue to monitor and ensure safety.
[2017-10-24 07:59] VITALS: BP 155/86
[2017-10-24 08:00] VITALS: BP 155/86
[2017-10-24] MEDS: ASPIRIN 325 MG TABLET PO SCH (08:19)
[2017-10-24] MEDS: FLUTICASONE/VILANTEROL 1 EACH BLST.W.DEV IH SCH (08:19)
[2017-10-24] MEDS: LEVOTHYROXINE SODIUM 25 MCG TABLET PO SCH (08:19)
[2017-10-24] MEDS: CLONIDINE HCL 0.1 MG TABLET PO SCH (08:20)
[2017-10-24] MEDS: AMIODARONE HCL 200 MG TABLET PO SCH (08:20)
[2017-10-24 08:21] VITALS: BP 155/86
[2017-10-24] MEDS: NIFEdipine XL 60 MG TAB PO SCH (08:21)
[2017-10-24] MEDS: CARVEDILOL 12.5 MG TABLET PO SCH (08:21)
--- NOTE | 2017-10-24 09:00 | NUR ---
MS/RN Medications Morning medications administered as ordered.
--- NOTE | 2017-10-24 11:57 | NUR ---
MS/RN S/B PT Seen by PT - patient will require walker when discharged to home.
--- NOTE | 2017-10-24 15:49 | NUR ---
MS/RN OR Patient taken to operating room, medical record with patient. Addendum: 10/24/17 at 1550 by IRVIN RAMACHANDRAN ERROR, WRONG PATIENT
--- NOTE | 2017-10-24 15:50 | NUR ---
MS/labor employment associate Discharge paperwork signed by patient with aid of environmental health inspector. Educated patient as to the importance of making a follow up appointment with her primary care doctor. Also reminded about increasing her level of activity and exercise with maintaining diet. Stated that she understood both. Heplock and picc line removed. Awaiting daughter to come amd take patient home.
--- NOTE | 2017-10-24 16:21 | NUR ---
MS/brass plater Patient discharged in stable condition, escorted to main lobby by BOWEN ans family. All personal belongings with patient and signed for on belongings list.
== END 2017-10-24 16:30 | disposition home or self-care (01) | DRG 280 ==
LOC: EDBD 22:47 → TELE 22:47 → TELE-TD 10-19 10:02 → MEDSG1 10-21 09:28 → MEDSG2 10-23 10:07
PROVIDERS: ADMIT Registered Nurse; ATTEND Registered Nurse
PROC: 05H633Z Insertion of Infusion Device into Left Subclavian Vein, Percutaneous Approach (ICD-10-PCS; principal; 2017-10-20)
PROC: B547ZZA Ultrasonography of Left Subclavian Vein, Guidance (ICD-10-PCS; 2017-10-20)
PROC: 02HV33Z Insertion of Infusion Device into Superior Vena Cava, Percutaneous Approach (ICD-10-PCS; 2017-10-22)
PROC: B548ZZA Ultrasonography of Superior Vena Cava, Guidance (ICD-10-PCS; 2017-10-22)
DX: I21.4 Non-ST elevation (NSTEMI) myocardial infarction (principal); N17.0 Acute kidney failure with tubular necrosis; E44.0 Moderate protein-calorie malnutrition; I13.0 Hypertensive heart and chronic kidney disease with heart failure and stage 1 through stage 4 chronic kidney disease, or unspecified chronic kidney disease; E88.09 Other disorders of plasma-protein metabolism, not elsewhere classified; D63.8 Anemia in other chronic diseases classified elsewhere; I50.9 Heart failure, unspecified; I48.0 Paroxysmal atrial fibrillation; E66.01 Morbid (severe) obesity due to excess calories; E03.9 Hypothyroidism, unspecified; E78.5 Hyperlipidemia, unspecified; Z68.35 Body mass index [BMI] 35.0-35.9, adult; G47.33 Obstructive sleep apnea (adult) (pediatric); N18.9 Chronic kidney disease, unspecified; T46.5X5A Adverse effect of other antihypertensive drugs, initial encounter; Y92.009 Unspecified place in unspecified non-institutional (private) residence as the place of occurrence of the external cause; Z87.410 Personal history of cervical dysplasia
CPT/HCPCS: 36415; 36569; 71045-TC; 75574; 80048-TC; 80053-TC; 80061-TC; 81000-TC; 83735-TC; 83880; 84100-TC; 84439-TC; 84443-TC; 84480; 84484-TC; 85025-TC; 85385-TC; 87081-TC; 93307-TC; 93970-TC; 97110-TC; 97116-TC; 97530-TC; A6402; C1751; C9113; J0282; J1650; J2270; J7030; J7050; J7060; Q9967; Z7610